=== PATIENT | male | born 1975 | race Caucasian/White ===

== ENCOUNTER 2017-02-04 12:18 | Emergency (ER) | payer SELFPAY ==
[2017-02-04] MEDS ORDERED: OXYCODONE-ACETAMINOPHEN 5-325 MG TABLET PO ONE (14:02)
--- NOTE | 2017-02-04 14:56 | RADIOLOGY REPORT (SQ) ---
EXAM DESCRIPTION: CT HEAD WITHOUT COMPLETED DATE/TIME: 02/04/2017 2:39 pm REASON FOR STUDY: fall from 20ft COMPARISON: None. TECHNIQUE: Axial images acquired through the brain without intravenous contrast. Images reviewed wi th bone, brain and subdural windows. Images stored on PACS. All CT scanners at this facility use dose modulation, iterative reconstruction, and/or weight based d osing when appropriate to reduce radiation dose to as low as reasonably achievable (ALARA). [facility]: Dose Right [facility]: CareDose [facility]: Dose Right [facility]: Teradose 4D [facility]: [employer] RADIATION DOSE: Up-to-date CT equipment and radiation dose reduction techniques were employed. CTDIv ol: 64.6 mGy. DLP: 1163 mGy-cm. mGy. LIMITATIONS: None. FINDINGS: VENTRICLES: Normal size and contour. CEREBRUM: No masses. No hemorrhage. No midline shift. Normal butterfield/white matter differentiation. N o evidence for acute infarction. CEREBELLUM: No masses. No hemorrhage. No alteration of density. No evidence for acute infarction. EXTRAAXIAL SPACES: No fluid collections. No masses. ORBITS AND GLOBE: No intra- or extraconal masses. Normal contour of globe without masses. CALVARIUM: No fracture. PARANASAL SINUSES: No fluid or mucosal thickening. SOFT TISSUES: No mass or hematoma. OTHER: No other significant finding. IMPRESSION: NORMAL BRAIN CT WITHOUT CONTRAST. TECHNICAL DOCUMENTATION: JOB ID: [id number] Quality ID # [id number]: Final reports with documentation of one or more dose reduction techniques (e.g., Au tomated exposure control, adjustment of the mA and/or kV according to patient size, use of iterative reconstruction technique) 2010 [employer]- All Rights Reserved
--- NOTE | 2017-02-04 14:58 | RADIOLOGY REPORT (SQ) ---
EXAM DESCRIPTION: CT CERVICAL SPINE WITHOUT COMPLETED DATE/TIME: 02/04/2017 2:39 pm REASON FOR STUDY: fall from 20ft COMPARISON: None. TECHNIQUE: Axial images acquired through the cervical spine without intravenous contrast. Images re viewed with lung, soft tissue and bone windows. Reconstructed coronal and sagittal MPR images review ed. Images stored on PACS. All CT scanners at this facility use dose modulation, iterative reconstruction, and/or weight based d osing when appropriate to reduce radiation dose to as low as reasonably achievable (ALARA). [facility]: Dose Right [facility]: CareDose [facility]: Dose Right [facility]: Teradose 4D [facility]: [email or web address] RADIATION DOSE: Up-to-date CT equipment and radiation dose reduction techniques were employed. CTDIv ol: 18.6 mGy. DLP: 336 mGy-cm. mGy. LIMITATIONS: None. FINDINGS: ALIGNMENT: Anatomic. MINERALIZATION: Normal. VERTEBRAL BODIES: No fractures or dislocation. DISCS: No significant disc disease. FACETS, LATERAL MASSES, POSTERIOR ELEMENTS: No fractures. No dislocation. No acute findings. HARDWARE: None in the spine. VISUALIZED RIBS: No fractures. LUNG APICES AND SOFT TISSUES: No significant or acute findings. OTHER: No other significant finding. IMPRESSION: NO ACUTE OR SIGNIFICANT FINDINGS IN THE CERVICAL SPINE. TECHNICAL DOCUMENTATION: JOB ID: [id number] Quality ID # 436: Final reports with documentation of one or more dose reduction techniques (e.g., Au tomated exposure control, adjustment of the mA and/or kV according to patient size, use of iterative reconstruction technique) 2010 [email or web address]- All Rights Reserved
--- NOTE | 2017-02-04 15:02 | RADIOLOGY REPORT (SQ) ---
EXAM DESCRIPTION: CT CHEST WITHOUT COMPLETED DATE/TIME: 02/04/2017 2:39 pm REASON FOR STUDY: fall from 20ft COMPARISON: None. TECHNIQUE: CT scan performed of the chest without intravenous contrast. Images reviewed with lung, soft tissue and bone windows. Reconstructed coronal and sagittal MPR images reviewed. All images st ored on PACS. All CT scanners at this facility use dose modulation, iterative reconstruction, and/or weight based d osing when appropriate to reduce radiation dose to as low as reasonably achievable (ALARA). [facility]: Dose Right [facility]: CareDose [facility]: Dose Right [facility]: Teradose 4D [facility]: Smart [employer] RADIATION DOSE: Up-to-date CT equipment and radiation dose reduction techniques were employed. CTDIv ol: 14.4 mGy. DLP: 538 mGy-cm. mGy. LIMITATIONS: No technical limitations. FINDINGS: LUNGS AND PLEURA: No masses, infiltrates, pneumothorax. No pleural effusions, calcificati ons. HILAR AND MEDIASTINAL STRUCTURES: No identified masses or abnormal nodes. No obvious aneurysm. HEART AND VASCULAR STRUCTURES: No aneurysm. No pericardial effusion. UPPER ABDOMEN: See separate report of the CT of the abdomen. THYROID AND OTHER SOFT TISSUES: No masses. No adenopathy. BONES: No significant finding. HARDWARE: None in the chest. OTHER: No other significant findings. IMPRESSION: NO SIGNIFICANT FINDING ON NON-CONTRASTED CHEST CT. TECHNICAL DOCUMENTATION: JOB ID: [id number] Quality ID # 436: Final reports with documentation of one or more dose reduction techniques (e.g., Au tomated exposure control, adjustment of the mA and/or kV according to patient size, use of iterative reconstruction technique) 2010 [employer]- All Rights Reserved
--- NOTE | 2017-02-04 15:08 | RADIOLOGY REPORT (SQ) ---
EXAM DESCRIPTION: CT ABD/PELVIS NO ORAL OR IV COMPLETED DATE/TIME: 02/04/2017 2:39 pm REASON FOR STUDY: fall from 20 ft COMPARISON: None. TECHNIQUE: CT scan of the abdomen and pelvis performed without intravenous or oral contrast. Images reviewed with lung, soft tissue, and bone windows. Reconstructed coronal and sagittal MPR images revi ewed. All images stored on PACS. All CT scanners at this facility use dose modulation, iterative reconstruction, and/or weight based d osing when appropriate to reduce radiation dose to as low as reasonably achievable (ALARA). [facility]: Dose Right [facility]: CareDose [facility]: Dose Right [facility]: Teradose 4D [facility]: Smart [employer] RADIATION DOSE: Up-to-date CT equipment and radiation dose reduction techniques were employed. CTDIv ol: 8.0 mGy. DLP: 431 mGy-cm.mGy. LIMITATIONS: None. FINDINGS: LOWER CHEST: See separate report of the CT of the chest. NON-CONTRASTED LIVER, SPLEEN, ADRENALS: Evaluation limited by lack of IV contrast. No identified sign ificant masses. PANCREAS: No masses. No peripancreatic inflammatory changes. GALLBLADDER: No identified stones by CT criteria. No inflammatory changes to suggest cholecystitis. RIGHT KIDNEY AND URETER: No suspicious masses. Assessment limited by lack of IV contrast. No signif icant calcifications. No hydronephrosis or hydroureter. LEFT KIDNEY AND URETER: No suspicious masses. Assessment limited by lack of IV contrast. No signifi cant calcifications. No hydronephrosis or hydroureter. AORTA AND RETROPERITONEUM: No aneurysm. No retroperitoneal masses or adenopathy. BOWEL AND PERITONEAL CAVITY: No obvious masses or inflammatory changes. No free fluid. APPENDIX: Normal. PELVIS, BLADDER, AND ABDOMINAL WALL:Urinary bladder is normal. Prostate gland and seminal vesicles a re normal. BONES: No significant findings. OTHER: No other significant finding. IMPRESSION: NO SIGNIFICANT OR ACUTE PROCESS IN THE ABDOMEN OR PELVIS. TECHNICAL DOCUMENTATION: JOB ID: [id number] Quality ID # [id number]: Final reports with documentation of one or more dose reduction techniques (e.g., Au tomated exposure control, adjustment of the mA and/or kV according to patient size, use of iterative reconstruction technique) 2010 [employer]- All Rights Reserved
--- NOTE | 2017-02-04 15:11 | RADIOLOGY REPORT (SQ) ---
EXAM DESCRIPTION: HAND RIGHT 3 VIEWS COMPLETED DATE/TIME: 02/04/2017 2:53 pm REASON FOR STUDY: fall from 20ft COMPARISON: None. EXAM PARAMETERS: NUMBER OF VIEWS: Three views. TECHNIQUE: AP, lateral and oblique radiographic images acquired of the right hand. LIMITATIONS: None. FINDINGS: MINERALIZATION: Normal. BONES: Question acute nondisplaced fracture at the 5th metacarpal head distal metaphysis. On the obl ique view, a step-off is present along the dorsal and lateral bony cortex. There is a subacute or old distal left ulnar diaphysis fracture with surrounding bony bridging callus and sclerosis along the fracture line. No other fractures are identified. 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 SOFT TISSUES: Diffuse dorsal left hand soft tissue swelling. No foreign body. OTHER: No other significant finding. IMPRESSION: Dorsal hand soft tissue swelling. Question hairline nondisplaced fracture distal right 5th metacarpal metaphysis. Subacute to old fracture distal ulnar metaphysis with surrounding bony bridging callus and bony scler osis TECHNICAL DOCUMENTATION: JOB ID: [id number]- All Rights Reserved
--- NOTE | 2017-02-04 15:12 | RADIOLOGY REPORT (SQ) ---
EXAM DESCRIPTION: KNEE RIGHT 3 VIEWS COMPLETED DATE/TIME: 02/04/2017 2:53 pm REASON FOR STUDY: fall from 20ft COMPARISON: None. NUMBER OF VIEWS: Three views. TECHNIQUE: AP, lateral, and sunrise patella radiographic images acquired of the right knee. LIMITATIONS: None. FINDINGS: MINERALIZATION: Normal. BONES: No acute fracture or dislocation. No worrisome bone lesions. JOINT: No effusion. SOFT TISSUES: No soft tissue swelling. No radio-opaque foreign body. OTHER: No other significant finding. IMPRESSION: NEGATIVE STUDY OF THE RIGHT KNEE. NO RADIOGRAPHIC EVIDENCE OF ACUTE INJURY. TECHNICAL DOCUMENTATION: JOB ID: [id number] [employer]- All Rights Reserved
[2017-02-04 16:58] VITALS: BP 144/92
--- NOTE | 2017-02-08 07:15 | ER Document Report ---
ED Fall - General Chief Complaint: Fall Stated Complaint: RIGHT HAND INJURY Time Seen by Provider: 02/04/17 13:40 Notes: patient is a 41 year old male who fell from 20 ft high ladder TRAVEL OUTSIDE OF THE [place] IN LAST 30 DAYS: No - HPI Occurred: Yesterday Where: Home Context: Fell from height - ladder Associated symptoms: denies: Lost consciousness, Dazed/confused, Seizure, Difficulty breathing, Difficulty walking, Became dizzy/fainted, Blood in stool Location of injury/pain: Chest, Hand - right Quality of pain: Achy - Related data Allergies/Adverse Reactions: No Known Allergies Allergy (Verified 02/04/17 12:25) Past Medical History - Social History Smoking Status: Current Every Day Smoker Chew tobacco use (# tins/day): No Frequency of alcohol use: None Drug Abuse: None Family History: Reviewed & Not Pertinent Patient has suicidal ideation: No Patient has homicidal ideation: No Renal/ Medical History: Reports: Hx Kidney Stones. Denies: Hx Epididymitis, Hx Peritoneal Dialysis Past Surgical History: Reports: Hx Genitourinary Surgery - Circumcised - Immunizations Hx Diphtheria, Pertussis, Tetanus Vaccination: Yes Review of Systems - Review of Systems Constitutional: No symptoms reported Cardiovascular: No symptoms reported Respiratory: No symptoms reported Gastrointestinal: No symptoms reported Musculoskeletal: See HPI -: Yes All other systems reviewed and negative Physical Exam - Vital signs Vitals: Temp Pulse Resp BP Pulse Ox 98.1 F 86 20 144/99 H 96 02/04/17 12:27 02/04/17 12:27 02/04/17 12:27 02/04/17 12:27 02/04/17 12:27 - Notes Notes: PHYSICAL EXAM GENERAL: Alert, interacts well. HEAD: Normocephalic, atraumatic. EYES: Pupils equal, round, and reactive to light. Extraocular movements intact. ENT: Oral mucosa moist, tongue midline. NECK: Full range of motion. Supple. Trachea midline. LUNGS: Clear to auscultation bilaterally, no wheezes, rales, or rhonchi. No respiratory distress. Chest without deformities, crepitus, ecchymosis. Mild tenderness to palpaiton but chest stable HEART: Regular rate and rhythm. No murmurs, gallops, or rubs. ABDOMEN: Soft, nondistended, nontender. No guarding, rebound, or rigidity.. Bowel sounds present in all 4 quadrants. EXTREMITIES: Moves all 4 extremities spontaneously.Right hand with swelling and bruising over head of the palmar aspect of the 5th metacarpal otherwise extremities edema, radial and dorsalis pedis pulses 2/4 bilaterally. No cyanosis. NEUROLOGICAL: Alert and oriented x4. Normal speech. PSYCH: Normal affect, normal mood. SKIN: Warm, dry, normal turgor. No rashes or lesions noted. Course - Re-evaluation Re-evalutation: 02/08/17 07:15 Patient is a 41-year-old male who is hemodynamic stable, no acute distress afebrile. Imaging negative except for right fifth metacarpal nondisplaced neck fracture. Patient placed in an ulnar gutter splint and to follow-up with orthopedics. Otherwise patient is alert, no pain, resting comfortably in stable for discharge home and follow-up with ortho. - Vital Signs Vital signs: Temp Pulse Resp BP Pulse Ox 97.4 F 76 16 144/92 H 94 02/04/17 16:49 02/04/17 16:49 02/04/17 16:49 02/04/17 16:49 02/04/17 16:49 - Diagnostic Test Radiology reviewed: Image reviewed, Reports reviewed Discharge - Discharge Clinical Impression: Fall, Boxers fracture Condition: Good Disposition: HOME, SELF-CARE Instructions: Fractured Fifth Metacarpal ([facility]), Splint Precautions ([facility]) Additional Instructions: Please follow up with ortho this week Prescriptions: Ibuprofen [Motrin 800 mg Tablet] 800 mg PO Q8H PRN #30 tab PRN Reason: Oxycodone HCl/Acetaminophen [Percocet 5-325 mg Tablet] 1 - 2 tab PO Q4H PRN #15 tablet PRN Reason: Forms: Elevated Blood Pressure, Return to Work Referrals: ELIJAH ESTEVEZ DO [ACTIVE STAFF] - Follow up in 3-5 days
== END 2017-02-04 16:52 | disposition home or self-care (01) ==
LOC: ER 12:18
PROC: 2W3CX1Z Immobilization of Right Lower Arm using Splint (ICD-10-PCS; principal; 2017-02-04)
DX: S62.366A Nondisplaced fracture of neck of fifth metacarpal bone, right hand, initial encounter for closed fracture (principal); W11.XXXA Fall on and from ladder, initial encounter; Y92.098 Other place in other non-institutional residence as the place of occurrence of the external cause; F17.200 Nicotine dependence, unspecified, uncomplicated
CPT/HCPCS: 70450; 71250; 72125; 74176; 99284

== ENCOUNTER 2018-08-14 11:41 | Emergency (ER) | payer SELFPAY ==
[2018-08-14] MEDS ORDERED: NORMAL SALINE 1000 ML 1,000 ML IV ONE (13:01)
--- NOTE | 2018-08-14 13:43 | RADIOLOGY REPORT (SQ) ---
EXAM DESCRIPTION: ELBOW RIGHT AP/LAT COMPLETED DATE/TIME: 08/14/2018 1:29 pm REASON FOR STUDY: swelling and pain COMPARISON: None. NUMBER OF VIEWS: Four views. TECHNIQUE: AP, lateral, and both oblique radiographic images acquired of the right elbow. LIMITATIONS: None. FINDINGS: MINERALIZATION: Normal. BONES: No acute fracture or dislocation. No worrisome bone lesions. JOINT: No effusion. SOFT TISSUES: Mild soft tissue swelling. No foreign body. OTHER: No other significant finding. IMPRESSION: SOFT TISSUE SWELLING. NO SIGNIFICANT BONY FINDINGS. TECHNICAL DOCUMENTATION: JOB ID: [id number] [employer]- All Rights Reserved Reading location - IP/workstation name: [email or web address]
[2018-08-14 13:44] LABS: ABSOLUTE BASOPHILS # (AUTO) 0.1 10^3/uL (0.0-0.2); ABSOLUTE EOSINOPHILS # (AUTO) 0.5 10^3/uL (0.0-0.6); ABSOLUTE LYMPHOCYTES (AUTO) 1.5 10^3/uL (0.5-4.7); ABSOLUTE MONOCYTES (AUTO) 0.7 10^3/uL (0.1-1.4); BASOPHILS % (AUTO) 0.6 % (0-2); EOSINOPHILS % (AUTO) 4.9 % (0-6); HEMATOCRIT 41.9 % (37.9-51.0); HEMOGLOBIN 14.3 g/dL (13.5-17.0); LYMPHOCYTES % (AUTO) 15.6 % (13-45); MEAN CORPUSCULAR HEMOGLOBIN 30.1 pg (27.0-33.4); MEAN CORPUSCULAR HGB CONC 34.1 g/dL (32.0-36.0); MEAN CORPUSCULAR VOLUME 88 fl (80-97); PLATELET COUNT 295 10^3/uL (150-450); RED BLOOD COUNT 4.74 10^6/uL (4.35-5.55); RED CELL DISTRIBUTION WIDTH 13.8 % (11.5-14.0); SEGMENTED NEUTROPHILS % (AUTO) 71.9 % (42-78); TOTAL CELLS COUNTED % (AUTO) 100 %; WHITE BLOOD COUNT 9.8 10^3/uL (4.0-10.5)
[2018-08-14 14:05] LABS: ALANINE AMINOTRANSFERASE 359 U/L (21-72); ALBUMIN 3.8 g/dL (3.5-5.0); ALKALINE PHOSPHATASE 124 U/L (38-126); ANION GAP 5 (5-19); ASPARTATE AMINO TRANSFERASE 171 U/L (17-59); BILIRUBIN,DIRECT 0.2 mg/dL (0.0-0.4); BILIRUBIN,TOTAL 0.5 mg/dL (0.2-1.3); BLOOD UREA NITROGEN 20 mg/dL (7-20); CARBON DIOXIDE 30 mmol/L (22-30); CHLORIDE 103 mmol/L (98-107); GLUCOSE 92 mg/dL (75-110); POTASSIUM 4.1 mmol/L (3.6-5.0); SODIUM 138.2 mmol/L (137-145); TOTAL PROTEIN 6.7 g/dL (6.3-8.2)
[2018-08-14] MEDS ORDERED: SULFAMETHOXAZOLE/TRIMETHOPRIM 800-160 MG TABLET PO ONE (16:14)
--- NOTE | 2018-08-14 16:17 | ER Document Report ---
ED Medical Screen (RME) - General Chief Complaint: Arm Pain Stated Complaint: RIGHT ARM PAIN, SWELLING Time Seen by Provider: 08/14/18 13:00 Mode of Arrival: Ambulatory Information source: Patient TRAVEL OUTSIDE OF THE [place] IN LAST 30 DAYS: No - HPI Patient complains to provider of: Right elbow swelling Onset: Other - This is an otherwise healthy 42-year-old man who presents for some redness and swelling in his right arm the swelling is been there for the last 3-4 days. It worsened over last 2 days prompting her to come the emergency room. States he does not take any other medications has no known health problems. He is not using anything to try and help with this nothing is made it better or worse. Denies any systemic signs of infection such as fevers, chills, moving elsewhere. Is never had anything like this in the past. He very specifically denies any IV drug abuse. - Related Data Allergies/Adverse Reactions: No Known Allergies Allergy (Verified 08/14/18 11:44) Past Medical History - General Information source: Patient - Social History Chew tobacco use (# tins/day): No Frequency of alcohol use: Social Renal/ Medical History: Reports: Hx Kidney Stones. Denies: Hx Epididymitis, Hx Peritoneal Dialysis Past Surgical History: Reports: Hx Genitourinary Surgery - Circumcised - Immunizations Hx Diphtheria, Pertussis, Tetanus Vaccination: Yes Review of Systems - Review of Systems -: Yes All other systems reviewed and negative Physical Exam - Vital signs Vitals: Temp Pulse Resp BP Pulse Ox 98.7 F 95 16 135/83 H 100 08/14/18 11:46 08/14/18 11:46 08/14/18 11:46 08/14/18 11:46 08/14/18 11:46 Interpretation: Normal - General General appearance: Appears well, Alert - HEENT Head: Normocephalic, Atraumatic Eyes: Normal Pupils: PERRL - Respiratory Respiratory status: No respiratory distress Chest status: Nontender Breath sounds: Normal Chest palpation: Normal - Cardiovascular Rhythm: Regular Heart sounds: Normal auscultation Murmur: No - Abdominal Inspection: Normal Distension: No distension Bowel sounds: Normal Tenderness: Nontender Organomegaly: No organomegaly - Back Back: Normal, Nontender - Extremities General lower extremity: Normal inspection, Nontender, Normal color, Normal ROM, Normal temperature, Normal weight bearing. No: Lyndsey's sign Elbow: Other - There is swelling over the right elbow, there is marked erythema extending from the lateral aspect just lateral to the epicondyle to the middle of the forearm without any obvious underlying fluctuance, no purulence, no comedone. - Neurological Neuro grossly intact: Yes Cognition: Normal Orientation: AAOx4 [place] Coma Scale Eye Opening: Spontaneous [place] Coma Scale Verbal: Oriented [place] Coma Scale Motor: Obeys Commands [place] Coma Scale Total: 15 Speech: Normal Motor strength normal: LUE, RUE, LLE, RLE Sensory: Normal - Psychological Associated symptoms: Normal affect, Normal mood - Skin Skin Temperature: Warm Skin Moisture: Dry Skin Color: Normal Course - Re-evaluation Re-evalutation: 08/14/18 16:51 42-year-old man without significant past medical history that presents for evaluation of arm swelling over the elbow. He denies any fevers or chills. Still has normal range of motion in the arm. On exam he is able to move the arm normally. Start initial workup obtaining blood work because of the erythema he has for possible cellulitic infection, did a bedside ultrasound which did not demonstrate any obvious fluid collection. Perform an x-ray which did not demonstrate any obvious fracture or malalignment. Spoke to the patient about further treatment options including IV antibiotics observation or oral antibiotics with return precautions. He as well as myself prefer to pursue a course of oral antibiotics with return precautions very specifically any fevers worsening pain or swelling. A skin pen was used to david the edge of this. - Vital Signs Vital signs: Temp Pulse Resp BP Pulse Ox 98.5 F 86 16 128/80 H 100 08/14/18 16:23 08/14/18 16:23 08/14/18 16:23 08/14/18 16:23 08/14/18 16:23 - Laboratory Result Diagrams: 08/14/18 13:31 08/14/18 13:31 Laboratory results interpreted by me: 08/14/18 13:31 AST 171 H ALT 359 H Doctor's Discharge - Discharge Clinical Impression: Arm swelling Cellulitis Qualifiers: Site of cellulitis: unspecified site Qualified Code(s): L03.90 - Cellulitis, unspecified Condition: Good Disposition: HOME, SELF-CARE Instructions: Cellulitis ([facility]) Additional Instructions: Your seen today in the emergency department for the swelling in your right arm. I think that the swelling in the right arm is an infection in the skin. You have been given an antibiotic. Make sure you take this antibiotic as directed. If this is worse in 24-36 hours please return to the emergency room immediately. You should return to the emergency room in 2 days for a recheck to make sure that this is getting better. If it becomes more painful or you cannot move your elbow please come back to the emergency room as it could be a more serious condition. Prescriptions: Hydrocodone/Acetaminophen [[place] 5-325 mg Tablet] 1 tab PO Q8 PRN #5 tablet PRN Reason: Sulfamethoxazole/Trimethoprim [Bactrim Ds Tablet] 1 each PO BID #20 tablet
[2018-08-14 16:24] VITALS: BP 128/80
== END 2018-08-14 16:23 | disposition home or self-care (01) ==
LOC: ER 11:41
DX: L03.90 Cellulitis, unspecified (principal); R22.31 Localized swelling, mass and lump, right upper limb; M79.601 Pain in right arm; Z87.442 Personal history of urinary calculi
CPT/HCPCS: 99284; 96360; 36415; 85025; 80053; 73070; J7030

== ENCOUNTER 2020-01-12 18:30 | Observation (INO) | payer SELFPAY ==
[2020-01-12] MEDS ORDERED: KETOROLAC TROMETHAMINE INJ/PF 30 MG/1 ML SDV IV ONE (19:10)
[2020-01-12] MEDS ORDERED: CLINDAMYCIN 600 MG/D5W RTU 600 MG/50 ML RTUPB IV ONE (19:11)
--- NOTE | 2020-01-12 19:13 | ER Document Report ---
ED Medical Screen (RME) - General Chief Complaint: Skin Problem Stated Complaint: ABSCESSES/ARMS AND LEGS Time Seen by Provider: 01/12/20 19:06 Mode of Arrival: Ambulatory Information source: Patient Notes: HPI; 44-year-old male no previous medical problems presents to the emergency room complaining of multiple abscesses to his bilateral upper arms and lower legs that he noted yesterday. No history of previous abscesses. No medications for symptoms. Denies any history of MRSA. PE: Alert and oriented x3, moderate distress noted. Lungs: Clear to auscultation without rales rhonchi or wheezes. Heart: Tachycardia without murmurs, rubs, gallops. There are multiple abscesses in multiple stages noted to bilateral upper and lower extremities. They are warm, erythematous tender to palpation. I have greeted and performed a rapid initial assessment of this patient. A comprehensive ED assessment and evaluation of the patient, analysis of test results and completion of the medical decision making process will be conducted by additional ED providers. I have specifically instructed the patient or family members with the patient to immediately return to any nursing staff should anything change in the patient's condition or with their chief complaint. TRAVEL OUTSIDE OF THE [place] IN LAST 30 DAYS: No - Related Data Allergies/Adverse Reactions: No Known Allergies Allergy (Verified 08/14/18 11:44) Past Medical History - Social History Frequency of alcohol use: Rare Drug Abuse: Marijuana Renal/ Medical History: Reports: Hx Kidney Stones. Denies: Hx Epididymitis, Hx Peritoneal Dialysis Past Surgical History: Reports: Hx Genitourinary Surgery - Circumcised - Immunizations Hx Diphtheria, Pertussis, Tetanus Vaccination: Yes Physical Exam - Vital signs Vitals: Temp Pulse Resp BP Pulse Ox 100.0 F 102 H 20 150/92 H 96 01/12/20 18:47 01/12/20 18:47 01/12/20 18:47 01/12/20 18:47 01/12/20 18:47 Course - Vital Signs Vital signs: Temp Pulse Resp BP Pulse Ox 100.0 F 102 H 20 150/92 H 96 01/12/20 19:06 01/12/20 18:47 01/12/20 18:47 01/12/20 18:47 01/12/20 18:47
[2020-01-12 19:45] LABS: ABSOLUTE BASOPHILS # (AUTO) 0.1 10^3/uL (0.0-0.2); ABSOLUTE EOSINOPHILS # (AUTO) 0.1 10^3/uL (0.0-0.6); ABSOLUTE LYMPHOCYTES (AUTO) 1.2 10^3/uL (0.5-4.7); ABSOLUTE MONOCYTES (AUTO) 0.8 10^3/uL (0.1-1.4); ABSOLUTE NEUT (AUTO) 7.9 10^3/uL (1.7-8.2); BASOPHILS % (AUTO) 0.9 % (0-2); EOSINOPHILS % (AUTO) 0.9 % (0-6); HEMATOCRIT 38.6 % (37.9-51.0); HEMOGLOBIN 13.2 g/dL (13.5-17.0); LYMPHOCYTES % (AUTO) 12.3 % (13-45); MEAN CORPUSCULAR HEMOGLOBIN 29.7 pg (27.0-33.4); MEAN CORPUSCULAR HGB CONC 34.2 g/dL (32.0-36.0); MEAN CORPUSCULAR VOLUME 87 fl (80-97); PLATELET COUNT 228 10^3/uL (150-450); RED BLOOD COUNT 4.44 10^6/uL (4.35-5.55); RED CELL DISTRIBUTION WIDTH 13.9 % (11.5-14.0); SEGMENTED NEUTROPHILS % (AUTO) 77.9 % (42-78); TOTAL CELLS COUNTED % (AUTO) 100 %; WHITE BLOOD COUNT 10.2 10^3/uL (4.0-10.5)
[2020-01-12 20:07] LABS: ALBUMIN 3.8 g/dL (3.5-5.0); ALKALINE PHOSPHATASE 101 U/L (38-126); ANION GAP 8 (5-19); ASPARTATE AMINO TRANSFERASE 23 U/L (17-59); BILIRUBIN,TOTAL 0.5 mg/dL (0.2-1.3); BLOOD UREA NITROGEN 10 mg/dL (7-20); CALCIUM 9.1 mg/dL (8.4-10.2); CARBON DIOXIDE 26 mmol/L (22-30); CHLORIDE 96 mmol/L (98-107); GLUCOSE 101 mg/dL (75-110); TOTAL PROTEIN 6.7 g/dL (6.3-8.2)
[2020-01-12] MEDS ORDERED: LIDOCAINE 1% INJ-PF (10 MG/ML) 30 ML SDV INJ ONE (20:25)
[2020-01-12] MEDS ORDERED: MORPHINE SULFATE 10 MG/ML INJ IV ONE (20:26)
--- NOTE | 2020-01-12 20:28 | ER Document Report ---
ED Skin Rash/Insect Bite/Abscs - General Chief Complaint: Skin Problem Stated Complaint: ABSCESSES/ARMS AND LEGS Time Seen by Provider: 01/12/20 19:06 Mode of Arrival: Ambulatory Notes: Patient is a 44-year-old male that comes to the emergency department for chief complaint of skin abscesses. He has abscesses in various stages now, he states it started on his right elbow, he admits that he scratched the area and now he has red, tender, draining, or swollen areas including on his left proximal leg, left forearm, right forearm, and a small area on his nose on the right. He denies history of abscesses, he works with housing construction. He denies fever, chills, nausea, vomiting, or any other complaints. He denies IV drug abuse. He denies any diagnosed medical history of daily medications. He reports his tetanus is up-to-date. TRAVEL OUTSIDE OF THE [place] IN LAST 30 DAYS: No - Related Data Allergies/Adverse Reactions: No Known Allergies Allergy (Verified 08/14/18 11:44) Past Medical History - General Information source: Patient - Social History Smoking Status: Current Every Day Smoker Frequency of alcohol use: Rare Drug Abuse: Marijuana Lives with: Family Family History: Reviewed & Not Pertinent Patient has homicidal ideation: No Renal/ Medical History: Reports: Hx Kidney Stones. Denies: Hx Epididymitis, Hx Peritoneal Dialysis Past Surgical History: Reports: Hx Genitourinary Surgery - Circumcised - Immunizations Hx Diphtheria, Pertussis, Tetanus Vaccination: Yes Review of Systems - Review of Systems Constitutional: See HPI EENT: No symptoms reported Cardiovascular: No symptoms reported Respiratory: No symptoms reported Gastrointestinal: No symptoms reported Genitourinary: No symptoms reported Male Genitourinary: No symptoms reported Musculoskeletal: See HPI Skin: See HPI Hematologic/Lymphatic: No symptoms reported Neurological/Psychological: No symptoms reported Physical Exam - Vital signs Vitals: Temp Pulse Resp BP Pulse Ox 100.0 F 102 H 20 150/92 H 96 01/12/20 18:47 01/12/20 18:47 01/12/20 18:47 01/12/20 18:47 01/12/20 18:47 - Notes Notes: GENERAL: Alert, interacts well. No acute distress. HEAD: Normocephalic, atraumatic. EYES: Pupils equal, round, and reactive to light. Extraocular movements intact. ENT: Oral mucosa moist, tongue midline. Oropharynx unremarkable. Airway patent. Nares patent, sinuses non-tender, ear canals unremarkable, TM's intact. NECK: Full range of motion. Supple. Trachea midline. No lymphadenopathy. LUNGS: Clear to auscultation bilaterally, no wheezes, rales, or rhonchi. No respiratory distress. Non-tender chest wall. HEART: Regular rate and rhythm. No murmur ABDOMEN: Soft, non-tender. Non-distended. Bowel sounds present in all 4 quadrants. GENITOURINARY: Deferred EXTREMITIES: Moves all 4 extremities spontaneously. No edema, normal radial and dorsalis pedis pulses bilaterally. No cyanosis. BACK: no cervical, thoracic, lumbar midline tenderness. No saddle anesthesia, normal distal neurovascular exam. Moves all extremities in full range of motion. NEUROLOGICAL: Alert and oriented x3. Normal speech. Cranial nerves II through XII grossly intact. Strength 5/5 in all extremities. PSYCH: Normal affect, normal mood. SKIN: There is a large tender very swollen erythematous area on the mid forearm. There are excoriated areas of erythema which appear to have been scratched open abscesses including on the right elbow, left elbow, left forearm, right side of the nose, and there are 3 of these on the left distal anterior thigh. However all of these have been opened, scratched away, and are draining a small amount of clear fluid except for the one on the right midforearm which is large, swollen, and seems fluctuant. There is surrounding erythema around each site with warmth and tenderness but there is no streaking away from the area. The left proximal forearm is also swollen indurated, erythematous, and tender, although there is no clear fluctuant area near this. There is no swelling around any joint, there is no blistering, no pustules, no vesicles. Course - Re-evaluation Re-evalutation: CBC nonspecific, chemistry nonspecific without evidence of diabetes. Temperature initially 100 F, patient received Toradol from triage after this. Initially patient was mildly tachycardic, this resolved after symptom management. Patient has a very swollen erythematous area in the mid right forearm which appears to be an abscess especially with his other locations of infection, however instead of simply opening less after discussion with patient the area was cleaned and I placed a needle and aspirated, this was surprisingly pure blood and this was noted to be a hematoma instead of an abscess. As result this was not opened and drained, this was cleaned and dressed. Patient now recalls that he did bump his right forearm after this and started hurting. Appears to be traumatic hematoma. No tenderness over the bone however. However in addition to this patient has a erythematous, indurated, swollen, very tender area in the left proximal forearm which she does not have any noted fluctuant area or obvious head. I did perform a bedside ultrasound and this appears to have a fluid collection deep under the skin and may be more complex. As result patient was sent for formal ultrasound. This does show a 3 cm complex area which is most likely abscess given patient's presentation. Patient was given clindamycin initially, clinically his scratch to abscesses have a MRSA appearance and patient was given vancomycin as well. I did discuss patient in detail with Dr. Gee. He recommends consultation with general surgery. I spoke with Dr. Noriega, general surgeon, patient accepted to surgical service. I discussed this in detail with patient, he states appreciation and agreement. - Vital Signs Vital signs: Temp Pulse Resp BP Pulse Ox 98.3 F 78 18 115/77 99 01/13/20 02:45 01/13/20 02:45 01/13/20 02:45 01/13/20 02:45 01/13/20 02:45 - Laboratory Result Diagrams: 01/12/20 19:26 01/12/20 19:26 Laboratory results interpreted by me: 01/12/20 01/12/20 19:26 19:26 Hgb 13.2 L Lymph % (Auto) 12.3 L Sodium 129.9 L Chloride 96 L Procedures - Incision and Drainage right forearm Anesthetic type: 1% Lidocaine mL's of anesthetic: 4 Blade size: Other - 18 guage needle I&D procedure: Betadine prep applied, Shurclens applied, Sterile dressing applied Incision Method: Incision made with needle Amount/type of drainage: About 6 cc of blood without any purulent component noted Notes: See course note Discharge - Discharge Clinical Impression: Abscess of left forearm, Left arm swelling Condition: Stable Disposition: ADMITTED OBSERVATION Admitting Provider: Surgicalist Unit Admitted: Surgical Floor
--- NOTE | 2020-01-12 22:26 | RADIOLOGY REPORT (SQ) ---
US EXTREMITY MUSCULOSKELETAL LIMITED HISTORY: Left forearm swelling; abscess? COMPARISON: None. TECHNIQUE: Jose-scale and color Doppler images of the left forearm were obtained. FINDINGS: There is a complex heterogeneous focal collection in the left forearm measuring 4.2 x 1.7 x 3.1 cm with mild surrounding color Doppler blood flow. There is overlying subcutaneous edema. IMPRESSION: 3 cm complex collection in the left forearm which may represent an abscess in the correct clinical setting. Differential also includes hematoma or neoplasm.
[2020-01-12] MEDS ORDERED: VANCOMYCIN HCL INJ 1000 MG VIAL IV ONE (22:45)
--- NOTE | 2020-01-12 23:55 | PDOC H&P ---
History of Present Illness Admission Date/PCP: 01/12/2020 Patient complains of: Pains along both forearms History of Present Illness: NATO RUBIO is a 44 year old male who is suddenly noted rash along all extremities in the past 3 to 4 days. Noted increasing pains and on both forearms with swelling. Went to ED tonight noted to have a low-grade fever. Works in construction. Past Surgical History Past Surgical History: Reports: Orthopedic Surgery - Drainage of left knee area when he was about 5 years old Social History Smoking Status: Current Every Day Smoker Frequency of Alcohol Use: Occasional Drugs: Marijuana Family History Family History: Reviewed & Not Pertinent Parental Family History Reviewed: Yes - No history of diabetes Children Family History Reviewed: No Sibling(s) Family History Reviewed.: No Medication/Allergy Home Medications: No Home Medications 1 01/09/13 Ibuprofen [Motrin 600 Mg Tablet] 600 mg PO TID #30 tablet 01/10/13 Ciprofloxacin HCl [Cipro 500 mg Tablet] 500 mg PO BID #20 tablet 07/13/13 Oxycodone HCl/Acetaminophen [Percocet 10-325 Mg Tablet] 1 each PO Q4HP PRN #15 tablet 07/13/13 Ibuprofen [Motrin 800 mg Tablet] 800 mg PO Q8H PRN #30 tab 02/04/17 Oxycodone HCl/Acetaminophen [Percocet 5-325 mg Tablet] 1 - 2 tab PO Q4H PRN #15 tablet 02/04/17 Hydrocodone/Acetaminophen [Jupiter 5-325 mg Tablet] 1 tab PO Q8 PRN #5 tablet 08/14/18 Sulfamethoxazole/Trimethoprim [Bactrim Ds Tablet] 1 each PO BID #20 tablet 08/14/18 Allergies/Adverse Reactions: No Known Allergies Allergy (Verified 08/14/18 11:44) Review of Systems Constitutional: PRESENT: fever(s) Nose, Mouth, and Throat: PRESENT: other - Pain along the tip of the nose with a rash Cardiovascular: PRESENT: other - Denies chest pains nor cough Gastrointestinal: PRESENT: other - No abdominal pains Musculoskeletal: PRESENT: other - Pains along the left leg area where there are rashes. Pains along both forearms where there obvious abscesses Physical Exam Vital Signs: Temp Pulse Resp BP Pulse Ox 100.0 F 102 H 20 150/92 H 96 01/12/20 19:06 01/12/20 18:47 01/12/20 18:47 01/12/20 18:47 01/12/20 18:47 Intake & Output 01/11/20 01/12/20 01/13/20 06:59 06:59 06:59 Intake Total 50 Balance 50 Weight 78.4 kg General appearance: PRESENT: mild distress Eye exam: PRESENT: conjunctiva pink Neck exam: PRESENT: full ROM Respiratory exam: PRESENT: clear to auscultation mohsen Cardiovascular exam: PRESENT: RRR Pulses: PRESENT: normal radial pulses Vascular exam: PRESENT: normal capillary refill GI/Abdominal exam: PRESENT: soft Rectal exam: PRESENT: deferred Musculoskeletal exam: PRESENT: other - Multiple rashes on the left thigh about 1.5 cm in diameter but appear to be dry Redness swelling along the right forearm. Enlarged left forearm on the dorsal side very tender. Neurological exam: PRESENT: alert, oriented to person, oriented to place, oriented to time, oriented to situation Psychiatric exam: PRESENT: appropriate affect Skin exam: PRESENT: erythema, warm - Swelling in both forearms that are both tender Results Laboratory Results: 01/12/20 19:26 01/12/20 19:26 01/12/20 01/12/20 01/12/20 19:26 19:26 19:26 WBC 10.2 RBC 4.44 Hgb 13.2 L Hct 38.6 MCV 87 MCH 29.7 MCHC 34.2 RDW 13.9 Plt Count 228 Seg Neutrophils % 77.9 Sodium 129.9 L Potassium 4.0 Chloride 96 L Carbon Dioxide 26 Anion Gap 8 BUN 10 Creatinine 0.63 Est GFR ( Amer) > 60 Glucose 101 Lactic Acid 1.1 Calcium 9.1 Total Bilirubin 0.5 AST 23 Alkaline Phosphatase 101 Total Protein 6.7 Albumin 3.8 Impressions: Extremity Ultrasound 01/12/20 21:30 IMPRESSION: 3 cm complex collection in the left forearm which may represent an abscess in the correct clinical setting. Differential also includes hematoma or neoplasm. Assessment & Plan - Diagnosis (1) Abscess of right forearm Is this a current diagnosis for this admission?: Yes (2) Abscess of left forearm Is this a current diagnosis for this admission?: Yes - Time Time Spent: 30 to 50 Minutes - Inpatient Certification Medical Necessity: Need For IV Fluids, Need for IV Antibiotics, Need for Surgery - Plan Summary Plan Summary: This is a 44-year-old male nondiabetic noted rash along all extremities in the past 3 to 4 days. The past 2 to 3 days developed swelling and erythematous tenderness along both forearms. These are both abscesses. He did have a low- grade fever in the ER tonight. Plans: Start IV antibiotics For incision and drainage of abscesses of both forearms tomorrow by Dr. Garcia
[2020-01-12] MEDS ORDERED: NORMAL SALINE 500 ML IV ONE (23:56)
[2020-01-13] MEDS ORDERED: KETOROLAC TROMETHAMINE INJ/PF 30 MG/1 ML SDV IV ONE (00:12)
[2020-01-13] MEDS ORDERED: VANCOMYCIN HCL INJ 1000 MG VIAL IV SCH (00:15)
[2020-01-13] MEDS ORDERED: LIDOCAINE 1% INJ-PF (10 MG/ML) 30 ML SDV ONE (14:57)
[2020-01-13] MEDS ORDERED: PROPOFOL INJ 200 MG/20 ML VIAL IV ONE ×2 (15:00→15:43)
[2020-01-13] MEDS ORDERED: MIDAZOLAM 2 MG/2 ML INJ ONE (15:00)
[2020-01-13] MEDS ORDERED: FENTANYL CITRATE INJ/PF 100 MCG/2 ML AMPUL ONE ×2 (15:00→16:25)
[2020-01-13] MEDS ORDERED: FENTANYL CITRATE INJ/PF 100 MCG/2 ML AMPUL IV PRN ×3 (15:02)
[2020-01-13] MEDS ORDERED: OXYCODONE-ACETAMINOPHEN 5-325 MG TABLET PO PRN ×3 (15:02→18:12)
[2020-01-13] MEDS ORDERED: MORPHINE SULFATE 10 MG/ML INJ IV PRN (15:02)
[2020-01-13] MEDS ORDERED: MEPERIDINE HCL/PF INJ 25 MG/1 ML DISP.SYRIN IV PRN (15:02)
[2020-01-13] MEDS ORDERED: DIPHENHYDRAMINE HCL 50 MG/ML VIAL IV PRN (15:02)
[2020-01-13] MEDS ORDERED: PROMETHAZINE HCL INJ 25 MG/1 ML VIAL IV PRN (15:02)
[2020-01-13] MEDS ORDERED: ONDANSETRON HCL INJ/PF 4 MG/2 ML SDV IV PRN (15:02)
--- NOTE | 2020-01-13 15:44 | Operative Report ---
Operative Report DATE OF SURGERY: 01/13/20 PREOPERATIVE DIAGNOSIS: 1. Bilateral upper extremity abscesses with cellulitis. 2. Smoker POSTOPERATIVE DIAGNOSIS: Same, rule out MRSA OPERATION: 1. Excisional debridement of right arm abscess, irrigation and packing. 2. Excisional debridement of left arm abscesses times 3, irrigation debridement, packing and placement of 2 loop [facility] drains SURGEON: LORRIE MALDONADO ANESTHESIA: LMAC TISSUE REMOVED OR ALTERED: Skin, subcutaneous tissue, pus COMPLICATIONS: None ESTIMATED BLOOD LOSS: 25 cc INTRAOPERATIVE FINDINGS: See below PROCEDURE: Patient was seen in the preop holding area, then taken to the main operating where LMAC anesthesia was induced. Both arms were isolated, prepped draped sterile fashion Surgical plan surgical timeout were conducted. The right forearm was identified to have a large, erupting abscess on the anterior lateral surface. The skin was anesthetized 1% plain lidocaine. An excisional debridement of the skin, in a circular fashion was created with a defect approximately 2 cm in diameter. The plug of tissue consisted of skin, dermis, and subcutaneous tissue. Using an index finger, loculations in the subcutaneous space cephalad and caudad laterally and medially were all broken up. Wound was irrigated with a liter of saline, and iodoform packing, quarter inch, was used to pack the undermined skin flaps in a circumferential fashion. 4 x 4's and Kerlix applied Left arm was treated in a similar fashion. For excisional debridements were created on the left arm, 3 on the forearm, and 1 involving the upper arm. These were located on the lateral aspect of the left upper with a 1cm excisional debri trisha, the second abscess medial anterior aspect of the left forearm, 3 cm, with subcutaneous tunneling cephalad and caudad for approximately 8 cm, a third abscess distal lateral forearm and a fourth abscess proximal lateral forearm. The final 2 abscesses were approximately 1.5 cm in diameter. After breaking up all subcutaneous tracts and loculations, I placed 2 loop 1/2 inch Petty drains, one between the second abscess and third abscess cavity sites, and the second Petty drain between the third and fourth cavity debridement sites. All tracts were irrigated out and packed with 4 separate pieces of 1/2 inch iodoform packing. 4 x 4's and Kerlix applied. Patient tolerated the procedure well, taken to recovery room in stable condition.
[2020-01-13] MEDS: FENTANYL CITRATE INJ/PF 100 MCG/2 ML AMPUL ONE ×2 (15:46→15:50)
[2020-01-13] MEDS: MORPHINE SULFATE 10 MG/ML INJ ONE ×2 (16:00→16:05)
[2020-01-13] MEDS ORDERED: FENTANYL CITRATE INJ/PF 100 MCG/2 ML AMPUL IV ONE ×2 (17:00)
[2020-01-13] MEDS: DOCUSATE SODIUM 100 MG CAPSULE PO SCH (18:51)
[2020-01-13] MEDS: KETOROLAC TROMETHAMINE INJ/PF 30 MG/1 ML SDV IV PRN (21:33)
[2020-01-14] MEDS: KETOROLAC TROMETHAMINE INJ/PF 30 MG/1 ML SDV IV PRN (09:14)
[2020-01-14] MEDS: DOCUSATE SODIUM 100 MG CAPSULE PO SCH (09:14)
[2020-01-14 12:47] VITALS: BP 161/61
--- NOTE | 2020-01-14 16:38 | PDOC DISCHARGE SUMMARY ---
General - Admit/Disc Date/PCP Admission Date/Primary Care Provider: 01/13/20 00:19 Discharge Date: 01/14/20 - Discharge Diagnosis Final Diagnosis: Multiple absccess of both arms - Assessment Summary: 44-year-old male with abscesses of both arms and rash along the nose and left upper extremities for the past 3 to 4 days. Patient then admitted on 01/13/2020 and subsequently underwent multiple incision and drainage of abscesses of the left forearm left upper arm and the right forearm done by Dr. Scherer. Patient however when seen this afternoon to change the dressings patient unable to be found. Patient apparently left the hospital without telling anybody. Nurses is been trying to call him on his mother on the phone but no response. - Additional Information Resuscitation Status: Full Code Discharge Diet: Regular Discharge Activity: Activity As Tolerated Referrals: [facility] [Provider Group] - 01/25/20 1:00 pm Home Medications: No Home Medications 01/13/20 History of Present Illiness History of Present Illness: NATO RUBIO is a 44 year old male who is suddenly noted rash along all extremities in the past 3 to 4 days. Noted increasing pains and on both forearms with swelling. Went to ED tonight noted to have a low-grade fever. Works in construction. Hospital Course Hospital Course: Patient admitted on 01/13/2020 for multiple abscesses left arm and right forearm and rash along the left lower leg areas. Patient underwent incision and drainage of multiple abscesses in the left arm on the right forearm by Dr. Scherer on 01/13/2020. The next day 01/14/2020 when I tried to look for him to remove the dressing he cannot be found. He apparently left without notifying anybody. Nurses unable to get in touch with him with his phone or 3 small. Initial Gram stain of the pus showed gram-positive cocci. Physical Exam Vital Signs: Temp Pulse Resp BP Pulse Ox 98.0 F 76 18 161/61 H 100 01/14/20 11:41 01/14/20 11:41 01/14/20 11:41 01/14/20 11:41 01/14/20 11:41 Intake & Output 01/13/20 01/14/20 01/15/20 06:59 06:59 06:59 Intake Total 550 400 240 Output Total 15 Balance 550 385 240 Weight 80.7 kg 79.2 kg Exam: Large swelling along the left forearm with erythema and tenderness. Right forearm has indurated area with small opening in the middle part. Has rash along the left upper upper leg. Results Laboratory Results: WBC 10.2 10^3/uL (4.0-10.5) 01/12/20 19: RBC 4.44 10^6/uL (4.35-5.55) 01/12/20 19:26 Hgb 13.2 g/dL (13.5-17.0) L 01/12/20 19:26 Hct 38.6 % (37.9-51.0) 01/12/20 19: MCV 87 fl (80-97) 01/12/20 19: MCH 29.7 pg (27.0-33.4) 01/12/20 19: MCHC 34.2 g/dL (32.0-36.0) 01/12/20 19: RDW 13.9 % (11.5-14.0) 01/12/20 19: Plt Count 228 10^3/uL (150-450) 01/12/20 19:26 Lymph % (Auto) 12.3 % (13-45) L 01/12/20 19:26 [place]gett % (Auto) 8.0 % (3-13) 01/12/20 19: Eos % (Auto) 0.9 % (0-6) 01/12/20: Baso % (Auto) 0.9 % (0-2) 01/12/20 19:26 Absolute Neuts (auto) 7.9 10^3/uL (1.7-8.2) 01/12/20 19:26 Absolute Lymphs (auto) 1.2 10^3/uL (0.5-4.7) 01/12/20 19:26 Absolute Monos (auto) 0.8 10^3/uL (0.1-1.4) 01/12/20 19: Absolute Eos (auto) 0.1 10^3/uL (0.0-0.6) 01/12/20 19:26 Absolute Basos (auto) 0.1 10^3/uL (0.0-0.2) 01/12/20: Seg Neutrophils % 77.9 % (42-78) 01/12/20 19:26 Sodium 129.9 mmol/L (137-145) L 01/12/20 19:26 Potassium 4.0 mmol/L (3.6-5.0) 01/12/20 19:26 Chloride 96 mmol/L (98-107) L 01/12/20 19:26 Carbon Dioxide 26 mmol/L (22-30) 01/12/20 19:26 Anion Gap 8 (5-19) 01/12/20 19:26 BUN 10 mg/dL (7-20) 01/12/20 19:26 Creatinine 0.63 mg/dL (0.52-1.25) 01/12/20 19:26 Est GFR ( Amer) > 60 (>60) 01/12/20 19:26 Est GFR (MDRD) Non-Af > 60 (>60) 01/12/20 19:26 Glucose 101 mg/dL (75-110) 01/12/20 19:26 Lactic Acid 1.1 mmol/L (0.7-2.1) 01/12/20 19:26 Calcium 9.1 mg/dL (8.4-10.2) 01/12/20 19:26 Total Bilirubin 0.5 mg/dL (0.2-1.3) 01/12/20 19:26 Direct Bilirubin 0.0 mg/dL (0.0-0.4) 01/12/20 19:26 Neonat Total Bilirubin Not Reportable 01/12/20 19:26 Neonat Direct Bilirubin Not Reportable 01/12/20 19:26 Neonat Indirect Bili Not Reportable 01/12/20 19:26 AST 23 U/L (17-59) 01/12/20 19:26 ALT 17 U/L (<50) 01/12/20 19:26 Alkaline Phosphatase 101 U/L (38-126) 01/12/20 19:26 Total Protein 6.7 g/dL (6.3-8.2) 01/12/20 19:26 Albumin 3.8 g/dL (3.5-5.0) 01/12/20 19:26 SARS-CoV-2 (PCR) NEGATIVE (NEGATIVE) 01/13/20 03:25 Impressions: Extremity Ultrasound 01/12/20 21:30 IMPRESSION: 3 cm complex collection in the left forearm which may represent an abscess in the correct clinical setting. Differential also includes hematoma or neoplasm. Plan Health Concerns: To heal abscesses site with incision and drainage Plan of Treatment: Incision and drainage of abscesses of the left arm and the right forearm Time Spent: Less than 30 Minutes
== END 2020-01-14 17:27 | disposition left against medical advice (07) ==
LOC: ER 18:30 → EH 01-13 00:19 → 4N 01-13 02:45
PROVIDERS: ADMIT Surgery; ATTEND Surgery
DX: L02.414 Cutaneous abscess of left upper limb (principal); L02.413 Cutaneous abscess of right upper limb; R21 Rash and other nonspecific skin eruption; R50.9 Fever, unspecified; F17.200 Nicotine dependence, unspecified, uncomplicated; J34.89 Other specified disorders of nose and nasal sinuses; R00.0 Tachycardia, unspecified; F12.10 Cannabis abuse, uncomplicated; L02.416 Cutaneous abscess of left lower limb; L02.415 Cutaneous abscess of right lower limb; Z03.818 Encounter for observation for suspected exposure to other biological agents ruled out
CPT/HCPCS: 96376; 99285; 96375; 96365; 96367; 36415; 87040; 87070; 87205; 83605; 85025; 87635; 87075; 87077; 80053; 76882; 11042; 10060; A6266; J2250; J3010; J3490 ×2; J1885 ×3; J2270 ×2; J7040; J2704; J3370; C9803; 400; 87186

== ENCOUNTER 2020-01-15 13:45 | Emergency (ER) | payer SELFPAY ==
--- NOTE | 2020-01-15 14:39 | ER Document Report ---
ED Medical Screen (RME) - General Chief Complaint: Wound Recheck Stated Complaint: WOUND CHECK Time Seen by Provider: 01/15/20 14:35 Information source: Patient TRAVEL OUTSIDE OF THE [place] IN LAST 30 DAYS: No - HPI Onset: Last week - 44-year-old male who presented to the hospital last week was admitted Dr. Gifford did surgery on some abscesses on bilateral arms patient was admitted to the floor and apparently had eloped still has his IV in place. He returns today for reevaluation/continuation of care. The wounds were assessed he has AURY drains tied through the abscesses the right arm is rather red and inflamed edematous with tracking up by the elbow. I greeted and performed a rapid initial assessment of this patient. Comprehensive ED assessment and evaluation of the patient, analysis of test results and completion of the medical decision making process will be conducted by additional ED providers. - Related Data Allergies/Adverse Reactions: No Known Allergies Allergy (Verified 08/14/18 11:44) Past Medical History Renal/ Medical History: Reports: Hx Kidney Stones. Denies: Hx Epididymitis, Hx Peritoneal Dialysis Psychiatric Medical History: Denies: Hx Depression Past Surgical History: Reports: Hx Genitourinary Surgery - Circumcised, Hx Orthopedic Surgery - Drainage of left knee area when he was about 5 years old - Immunizations Hx Diphtheria, Pertussis, Tetanus Vaccination: Yes Physical Exam - Vital signs Vitals: Temp Pulse Resp BP Pulse Ox 98.3 F 89 16 135/88 H 98 01/15/20 13:50 01/15/20 13:50 01/15/20 13:50 01/15/20 13:50 01/15/20 13:50 Course - Vital Signs Vital signs: Temp Pulse Resp BP Pulse Ox 98.3 F 89 16 135/88 H 98 01/15/20 13:50 01/15/20 13:50 01/15/20 13:50 01/15/20 13:50 01/15/20 13:50
[2020-01-15 15:05] LABS: APPEARANCE,URINE CLEAR; BILIRUBIN,URINE NEGATIVE (NEGATIVE); COLOR,URINE YELLOW; GLUCOSE, URINE NEGATIVE (NEGATIVE); KETONES,URINE NEGATIVE (NEGATIVE); LEUKOCYTE ESTERASE,URINE NEGATIVE (NEGATIVE); NITRITE,URINE NEGATIVE (NEGATIVE); PROTEIN,URINE NEGATIVE (NEGATIVE); URINE SPECIFIC GRAVITY 1.019
[2020-01-15 15:21] LABS: ABSOLUTE BASOPHILS # (AUTO) 0.1 10^3/uL (0.0-0.2); ABSOLUTE EOSINOPHILS # (AUTO) 0.2 10^3/uL (0.0-0.6); ABSOLUTE LYMPHOCYTES (AUTO) 1.9 10^3/uL (0.5-4.7); ABSOLUTE MONOCYTES (AUTO) 0.9 10^3/uL (0.1-1.4); ABSOLUTE NEUT (AUTO) 6.8 10^3/uL (1.7-8.2); BASOPHILS % (AUTO) 0.7 % (0-2); EOSINOPHILS % (AUTO) 1.6 % (0-6); HEMATOCRIT 38.9 % (37.9-51.0); HEMOGLOBIN 13.2 g/dL (13.5-17.0); LYMPHOCYTES % (AUTO) 19.4 % (13-45); MEAN CORPUSCULAR HEMOGLOBIN 29.2 pg (27.0-33.4); MEAN CORPUSCULAR HGB CONC 33.8 g/dL (32.0-36.0); MEAN CORPUSCULAR VOLUME 86 fl (80-97); PLATELET COUNT 299 10^3/uL (150-450); RED BLOOD COUNT 4.51 10^6/uL (4.35-5.55); RED CELL DISTRIBUTION WIDTH 13.8 % (11.5-14.0); SEGMENTED NEUTROPHILS % (AUTO) 69.3 % (42-78); TOTAL CELLS COUNTED % (AUTO) 100 %; WHITE BLOOD COUNT 9.9 10^3/uL (4.0-10.5)
[2020-01-15 15:43] LABS: ALBUMIN 3.4 g/dL (3.5-5.0); ALKALINE PHOSPHATASE 102 U/L (38-126); ANION GAP 8 (5-19); ASPARTATE AMINO TRANSFERASE 24 U/L (17-59); BILIRUBIN,TOTAL 0.4 mg/dL (0.2-1.3); BLOOD UREA NITROGEN 8 mg/dL (7-20); CALCIUM 8.7 mg/dL (8.4-10.2); CARBON DIOXIDE 27 mmol/L (22-30); CHLORIDE 97 mmol/L (98-107); GLUCOSE 109 mg/dL (75-110); POTASSIUM 3.7 mmol/L (3.6-5.0); TOTAL PROTEIN 6.5 g/dL (6.3-8.2)
[2020-01-15] MEDS ORDERED: VANCOMYCIN HCL INJ 1000 MG VIAL IV ONE (16:08)
--- NOTE | 2020-01-15 16:10 | ER Document Report ---
HPI - HPI Patient complains to provider of: Wound recheck Time Seen by Provider: 01/15/20 16:00 Onset: Other - Days ago Onset/Duration: Persistent Quality of pain: Achy Pain Level: 3 Context: Patient was recently admitted for multiple abscesses to bilateral upper arms. Patient eloped on 01/13/2020. Patient denies any fever. Patient presents requesting a wound recheck at this time. Patient has not been taking any oral antibiotics. Associated Symptoms: denies: Fever Exacerbated by: Movement Relieved by: Denies Similar symptoms previously: No Recently seen / treated by doctor: Yes - ROS ROS below otherwise negative: Yes Systems Reviewed and Negative: Yes All other systems reviewed and negative - CONSTITUTIONAL Constitutional: DENIES: Fever, Chills - NEURO Neurology: DENIES: Weakness - GASTROINTESTINAL Gastrointestinal: DENIES: Nausea - MUSCULOSKELETAL Musculoskeletal: REPORTS: Extremity pain - Neuro forearms, Swelling - DERM Skin Color: Erythema - Erythema surrounding skin lesions to left forearm Past Medical History - General Information source: Patient - Social History Smoking Status: Current Every Day Smoker Frequency of alcohol use: Occasional Drug Abuse: Marijuana 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 Denies: Hx Epididymitis, Hx Peritoneal Dialysis Skin Medical History: Reports Hx MRSA Psychiatric Medical History: Denies: Hx Depression Past Surgical History: Reports: Hx Genitourinary Surgery - Circumcised, Hx Orthopedic Surgery - Drainage of left knee area when he was about 5 years old - Immunizations Hx Diphtheria, Pertussis, Tetanus Vaccination: Yes Vertical Provider Document - CONSTITUTIONAL Agree With Documented VS: Yes Exam Limitations: No Limitations - INFECTION CONTROL TRAVEL OUTSIDE OF THE [place] IN LAST 30 DAYS: No - HEENT HEENT: Atraumatic, Normocephalic - NECK Neck: Normal Inspection, Supple. negative: Lymphadenopathy-Left, Lymphadenop athy-Right - RESPIRATORY Respiratory: Breath Sounds Normal, No Respiratory Distress - CARDIOVASCULAR Cardiovascular: Regular Rate, Regular Rhythm Pulses: Normal: Radial - MUSCULOSKELETAL/EXTREMETIES Musculoskeletal/Extremeties: MAEW - NEURO Level of Consciousness: Awake, Alert, Appropriate Motor/Sensory: No Motor Deficit - DERM Integumentary: Warm, Dry, Abscess - Patient with abscess to dorsal right forearm with surrounding erythema and packing in place. Patient with 2 abscesses to left forearm with drains in place, abscess to left upper arm with packing in place and surrounding erythema that extends from left upper arm down to the left forearm. Course - Re-evaluation Re-evalutation: 01/15/20 16:[address] Graham who agrees to come and evaluate patient. Recommends giving patient a dose of IV vancomycin at this time. 01/15/20 16:26 Dr. Graham evaluated patient. Recommends repacking wound to right forearm. Advises after patient has received his IV vancomycin he can be discharged with a prescription for Bactrim 1 tablet twice a day for 2 weeks. Recommends having patient follow-up in the surgical clinic with Dr. Maldonado for recheck. 01/15/20 17:38 Abscess to right forearm packed with quarter inch iodoform gauze. Patient tolerated well. Will complete IV infusion and then plan for discharge. Patient is encouraged to follow-up with Dr. Maldonado in the office. Patient also advised that he can remove the packing to his right forearm in 2 days. - Vital Signs Vital signs: Temp Pulse Resp BP Pulse Ox 98.3 F 89 16 135/88 H 98 01/15/20 14:26 01/15/20 13:50 01/15/20 13:50 01/15/20 13:50 01/15/20 13:50 - Laboratory Result Diagrams: 01/15/20 15:09 01/15/20 15:09 Laboratory results interpreted by me: 01/15/20 01/15/20 01/15/20 14:45 15:09 15:09 Hgb 13.2 L Sodium 132.4 L Chloride 97 L Albumin 3.4 L Urine Urobilinogen 2.0 H Urine Ascorbic Acid 20 H 01/15/20 17:38 Labs- All tests 24 hr 01/15/20 01/15/20 01/15/20 14:45 15:09 15:09 WBC 9.9 RBC 4.51 Hgb 13.2 L Hct 38.9 MCV 86 MCH 29.2 MCHC 33.8 RDW 13.8 Plt Count 299 Lymph % (Auto) 19.4 [place] % (Auto) 9.0 Eos % (Auto) 1.6 Baso % (Auto) 0.7 Absolute Neuts (auto) 6.8 Absolute Lymphs (auto) 1.9 Absolute Monos (auto) 0.9 Absolute Eos (auto) 0.2 Absolute Basos (auto) 0.1 Seg Neutrophils % 69.3 Sodium 132.4 L Potassium 3.7 Chloride 97 L Carbon Dioxide 27 Anion Gap 8 BUN 8 Creatinine 0.54 Est GFR ( Amer) > 60 Est GFR (MDRD) Non-Af > 60 Glucose 109 Calcium 8.7 Total Bilirubin 0.4 Direct Bilirubin 0.0 Neonat Total Bilirubin Not Reportable Neonat Direct Bilirubin Not Reportable Neonat Indirect Bili Not Reportable AST 24 ALT 18 Alkaline Phosphatase 102 Total Protein 6.5 Albumin 3.4 L Urine Color YELLOW Urine Appearance CLEAR Urine pH 6.0 Ur Specific [place] 1.019 Urine Protein NEGATIVE Urine Glucose (UA) NEGATIVE Urine Ketones NEGATIVE Urine Blood NEGATIVE Urine Nitrite NEGATIVE Urine Bilirubin NEGATIVE Urine Urobilinogen 2.0 H Ur Leukocyte Esterase NEGATIVE Urine WBC (Auto) 2 Urine RBC (Auto) 1 Urine Mucus (Auto) MANY Urine Ascorbic Acid 20 H Discharge - Discharge Clinical Impression: Abscess of right forearm, Abscess of left forearm, MRSA infection of both arms Condition: Stable Disposition: HOME, SELF-CARE Instructions: Abscess ([facility]), IV Antibiotics ([facility]), MRSA Cellulitis ([facility]), Trimethoprim-Sulfa ([facility]) Additional Instructions: Return immediately for any new or worsening symptoms Followup with Dr. Maldonado for further evaluation of your wounds, call tomorrow to make a follow-up appointment Remove the packing to your right forearm in 2 days. Keep wounds covered with a gauze dressing to prevent any worsening of your infections. Prescriptions: Sulfamethoxazole/Trimethoprim [Bactrim Ds Tablet] 1 each PO BID #28 tablet Referrals: LORRIE MALDONADO MD [ACTIVE STAFF] - Follow up tomorrow
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
[2020-01-15 18:11] VITALS: BP 171/86
== END 2020-01-15 18:10 | disposition home or self-care (01) ==
LOC: ER 13:45
DX: L02.414 Cutaneous abscess of left upper limb (principal); L02.413 Cutaneous abscess of right upper limb; B95.62 Methicillin resistant Staphylococcus aureus infection as the cause of diseases classified elsewhere; F17.200 Nicotine dependence, unspecified, uncomplicated; F12.10 Cannabis abuse, uncomplicated; Z98.890 Other specified postprocedural states
CPT/HCPCS: 99283; 96365; 36415; 87040; 85025; 80053; 81001; J3370